=== PATIENT | male | born 1935 | race Caucasian/White ===

== ENCOUNTER 2016-12-17 10:17 | Day surgery (SDC) | payer MEDICARE ==
[2016-12-17] VITALS (7 sets, daily range): BP systolic 125–154; BP diastolic 65–93; PULSE 60–70; RESP 14–18; O2SAT 93–97
[~2016-12-17] VITALS: Ht 180.3 cm; Wt 106.7 kg
[~2016-12-17 10:17] MED LIST: ACYC400T2 PO; COUMADIN PO; DIPH1TAB PO; LACT1CAP65 PO; LISI-571 PO; LOPE2CAP PO; LORA0.5T PO; METO-272 PO
[2016-12-17] MEDS ORDERED: Propofol 10,000 mCg/mL 20 mL Inj ONE (10:18)
[2016-12-17] MEDS ORDERED: fentaNYL-PF 50 mCg/mL 2 mL Inj ONE (10:18)
[2016-12-17] MEDS: Lactated Ringer's 1,000 ML IV SCH ×2 (10:30→11:26)
[2016-12-17 11:18] LABS: INR 1.05 ratio
[2016-12-17] MEDS: Levofloxacin 500 mg/100 mL D5W IV ONE (11:35)
[2016-12-17] MEDS ORDERED: Lactated Ringer's 500 ML IV PRN (11:57)
[2016-12-17] MEDS ORDERED: Lactated Ringer's 1,000 ML IV SCH (11:57)
--- NOTE | 2016-12-17 11:57 | PCM.HPANE ---
Patient Data Date of Service: Dec 17, 2016 Surgeon Admitting Provider: Attending Provider:Josefa Morgan MD Primary Care Physician:Luis Angel Clark MD Other Provider:Adriana King Anesthesia Reason for Visit Bladder Stone, Urinary Retention Ht/WT & BMI Height (Feet): 5 Height (Inches): 11.00 Weight (Kilograms): 106.680 Body Mass Index 32.00 Allergies Coded Allergies: Penicillins (Verified Allergy, Severe, HAS DEVELOPED HIVES IN THE PAST, 11/12/16) acetaminophen (Verified Allergy, Severe, HIVES, RASH, ITCHING, 11/12/16) hydrocodone (Verified Allergy, Severe, HIVES, RASH, ITCHING, 11/12/16) oxycodone (Verified Allergy, Severe, HIVE, RASH, ITCHING, 11/12/16) alendronate sodium (Verified Adverse Reaction, Severe, DIARRHEA, 11/12/16) aspirin (Verified Adverse Reaction, Severe, epistaxis, 11/12/16) Uncoded Allergies: FISH (Allergy, Severe, ANAPHYLAXIS, 11/12/16) Past Anesthesia History Anesthesia History: Denies:: Anesthesia Reactions, Fam Anesthesia Reaction, Malignant Hyperthermia Diabetes History Hx Diabetes?: No MRSA MRSA: No Medications Blood Thinner: Coumadin Hypertension Medication: Yes Home Meds Incl Beta Jovanni: Yes (Metoprolol 50mg) Date Beta Jovanni Taken: Dec 17, 2016 Time Beta Jovanni Taken: 0900 Reported Medications [Coumadin] No Conflict Check1.5 Tab PO DAILY PT UNSURE OF DOSAGE 11/13/16 Acyclovir 400 Mg [id number] Mg PO BID Ref 0 PLEASE VERIFY DOSAGE & FREQUENCY 11/13/16 Lactobacillus Acidophilus (Probiotic)1 Each Capsule1 Each PO DAILY 11/13/16 Metoprolol Succinate ER 50 Mg Tab.er.24h50 Mg PO DAILY Ref 0 11/12/16 Lorazepam 0.5 Mg Tablet0.5 Mg PO HS PRN For Insomnia Ref 0 11/12/16 Loperamide 2 Mg Capsule2-4 Mg PO Q6H PRN PRN 11/12/16 Diphenoxylate/Atropine 2.5-0.025 mg (Lomotil 2.5-0.025 mg)1 Each Tablet1 Tablet PO PRN 11/12/16 Lisinopril 5 Mg Tablet5 Mg PO DAILY #30 TABLET Ref 0 11/12/16 History History of ENT Problems?: Yes HEENT History: Positive for:: Cataracts (bilateral surgery) Hearing Problem Denture Type: Full- Upper Partial- Lower Teeth Condition: Within Normal Limits Missing Teeth Other HEENT Pertinent History: hx of corneal transplant Hx of Heart Problems?: Yes Cardiovascular History: Positive for:: Atrial Fibrillation Cardiac Surgery (angioplasty stent 2014) Hypertension Irregular Heartbeat Denies:: Heart Murmur Valvular Heart Disease Other Cardiac History: 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 Hx of Respiratory Problem?: Yes Respiratory History: Positive for:: Chest Surgery (S/P LUNG BX/RESECTION FOR CA (METS)) Use of C-PAP Machine Other Resp Pertinent History: pt has hx of lobectomy from metastatic colon ca Hx Neurologic Problems?: No Neurological History: Denies:: CVA Multiple Sclerosis Parkinson's Disease Seizures Hx of GI Problems?: No Other GI Pertinent History: hx of colon cancer with colectomy Hx of Problems?: Yes Genitourinary History: Positive for:: Kidney Stones (bladder stone current admission problem) Urinary Tract Infection (HX CYSTITIS) Other Pertinent History: urinary retention current admission problem Male Hx: Denies:: Prostate Problems Scrotal Mass Testicular Surgery (HX HYPOGONADISM) Skin History: Denies:: History Skin Disorders? Pressure Ulcers Hx Musculoskeletal Problems?: No Hx of Psycho/Social Problems?: No Hx Surgeries?: Yes (colectomy, lobectomy, hepatectomy, breanna, marlon cat, corneal transplant) Hx Any Other Health Problems?: Yes Other History: Positive for:: Cancer (metastatic colon) Hospitalization Denies:: Endocrine Disease Thyroid Disease Hx Diabetes: No Hx Alcohol Use: NoHx Substance Use: NoHave You Smoked inLast 12 mo: NoApprox How Many Cigarettes/day: CHEWED TOBACCO & SMOKED 1/2 PPD Stop/Bang Treated for Sleep Apnea?: Yes Do You Have a CPAP Machine?: Yes S-Snoring: Do You Snore Loudly: Yes T-Tired: feel tired, fatigued: No O-Obsered: Observed not breath: No P-Blood Pressure: treated: Yes B- Body Mass Index > 35 kg/m2: No A- Age over 50: Yes N- Neck Large Circumference: No G- Gender Male: Yes JULIA Total Score: 5 JULIA Risk Assessment: High Risk, =/>3 Yes Risk Assessment Category Category 1A: Patient has history of documented sleep apnea, and HAS NOT received any narcotic, sedative or anesthesia administration during this stay. Category 1B: Patient has history of documented sleep apnea, and HAS received any narcotic , sedative or anesthesia administration during this stay Category 2: Patient has SUSPECTED Obstructive Sleep Apnea, and HAS received any narcotic , sedative or anesthesia administration during this stay. Category 3: Patient has SUSPECTED Obstructive Sleep Apnea and HAS NOT received narcotic, sedative or anesthesia administration during this stay. Category 4: Outpatient in Procedural Areas with known sleep apnea or who screen positive for High Risk via the STOP/BANG questionnaire. Exam Exam Vital Signs Vital Signs Date Time Temp Pulse Resp B/P Pulse Ox O2 Delivery O2 Flow Rate FiO2 12/17/16 10:56 CPAP/BIPAP 12/17/16 10:54 36.6 61 18 139/75 97 Room Air General Appearance: Alert HEENT/AIRWAY: MP 1 Lungs: Clear to Auscultation, Normal Air Movement Heart: Exam Unremarkable, Regular Rate/Rhythm, No Murmurs/Rubs/Gallops Meds/Labs/Diagnostics Admission Meds Current Medications Lactated Ringer's (Lr) 1,000 ml @ 120 mls/hr Q8H20M IV Last administered on t 10:30; Start 12/17/16 at 05:00; Stop 12/17/16 at 13:19 Labs Test 12/17/16 10:50 Prothrombin Time 11.3sec (8.1-12.5) Prothromb Time International Ratio 1.05ratio Plan Impression Patient chart reviewed, patient interviewed and anesthestic plan with risks, benefits, and alternatives discussed, and informed consent obtained. NPO per Anesth. Guidelines: Yes ASA Physical Status: ASA2 Mod Systemic Disease Anesthetic Plan: GA Bene/Risks/Altern/Consents: Yes HP Complete Prior to Induction: Yes Arnoldo Alonzo MD Dec 17, 2016 11:57
[2016-12-17] MEDS ORDERED: EPHEDrine Sulfate 50 mg/mL Inj IVPUSH PRN (12:00)
[2016-12-17] MEDS ORDERED: MetoCLOpramide 5 mg/mL 2 mL Inj IVPUSH PRN (12:00)
[2016-12-17] MEDS ORDERED: Phenylephrine 10,000 mCg/mL Inj IVPUSH PRN (12:00)
[2016-12-17] MEDS ORDERED: Dexamethasone 4 mg/mL Inj IVPUSH PRN (12:00)
[2016-12-17] MEDS ORDERED: HYDROmorphone 1 mg/mL Inj IVPUSH PRN (12:00)
[2016-12-17] MEDS ORDERED: Ondansetron 2 mg/mL 2 mL Inj IVPUSH PRN (12:00)
--- NOTE | 2016-12-17 12:47 | PCM.ANEP1 ---
Post Anesthesia PACU Phase 1 Assessment Vital Signs Vital Signs Date Time Temp Pulse Resp B/P Pulse Ox O2 Delivery O2 Flow Rate FiO2 12/17/16 10:56 CPAP/BIPAP 12/17/16 10:54 36.6 61 18 139/75 97 Room Air Anesthetic Administered: GA Level of Alertness: Awake, talking MCRAE's with Equal Strength: Yes Pain: No Nausea or Vomiting: No CV Function & Hydration Stable: Yes Airway Device: Oxygen Delivery: Room Air Lungs: Clear to Auscultation, Normal Air Movement Dermatome Level: Full Sensation PACU Phase 2 Assessment Complications: No Follow up Care: No Patient Instructions Provided: N/A Arnoldo Alonzo MD Dec 17, 2016 12:47
[2016-12-17] MEDS: fentaNYL-PF 50 mCg/mL 2 mL Inj IVPUSH PRN ×2 (13:00→13:06)
--- NOTE | 2016-12-17 13:39 | OP ---
[address] [address] OPERATIVE REPORT PATIENT: ROBINSON CORMIER : 1935 MR#: [id number] ADMIT: 12/17/2016 JOB ID: [id number] DATE OF SURGERY: 12/17/2016 PREOPERATIVE DIAGNOSIS(ES): 1. Bladder stones. 2. Urinary retention. POSTOPERATIVE DIAGNOSIS(ES): 1. Bladder stones. 2. Urinary retention. PROCEDURE PERFORMED: 1. Cystoscopy. 2. Cystolitholapaxy. 3. Transurethral resection of prostate. SURGEON: Josefa Morgan M.D. NEWSP[employer] SUPERVISOR: None. FINDINGS: 1. Multiple bladder stones. 2. Innumerable prostate stones. 3. Coapted lobes of prostate. ANESTHESIA: General. ESTIMATED BLOOD LOSS: Less than 10 mL. DRAINS: An 18-Venezuelan coude catheter to the bladder. SPECIMENS: Prostate chips and stones. COMPLICATIONS: None. CONDITION: Stable. INDICATIONS FOR PROCEDURE: The patient is a 81-year-old man with high postvoid residuals as well as bladder stones. He now presents for transurethral resection of prostate and cystolitholapaxy. DESCRIPTION OF PROCEDURE: After informed consent was obtained, the patient was taken to the operating room. A time-out was performed identifying correct patient, surgical site and procedure. General anesthesia was induced. He was given intravenous antibiotics just prior to the start of the procedure. He was placed in the lithotomy position and all pressure points were identified and appropriately padded. His genitals were then prepped and draped in the usual sterile fashion. A 26-Venezuelan resectoscope was applied to the patient's urethra and advanced into the bladder. The bladder was quite trabeculated. Both ureteral orifices were seen in orthotopic position. There were multiple small bladder stones there. The loop was used to facilitate fragmentation and removal of these stones. The attention was then turned to the transurethral resection of prostate. This proceeded smoothly from the bladder neck to the verumontanum. Adjacent to the verumontanum were small pockets that contained innumerable prostatic stones. These were unroofed successfully bilaterally from the verumontanum and removed with the loop as well. The resection of prostate commenced in a piecemeal fashion working from the right lobe to the left lobe. There was excellent hemostasis at the end of the procedure. The bladder was reinspected and the ureteral orifices were seen as undisturbed. The instruments were removed from the patient's body. An 18-Venezuelan coude catheter was placed and the patient's bladder insufflated with 10 cc of sterile water. It was set to dependent drainage. The patient appeared to tolerate the procedure without any apparent complications. He was reversed from general anesthesia and taken to the PACU in good and stable condition. CHINEDU
--- NOTE | 2016-12-19 12:12 | PATH ---
SURGICAL PATHOLOGY Attending Physician:Josefa Morgan, CASE STATUS: Signed Out PATIENT NAME: ROBINSON CORMIER PID: [id number] : 1935 DATE COLLECTED:12/17/2016 20:49 SPECIMEN: Prostate, Chips CLINICAL HISTORY: BLADDER STONE, URINARY RETENTION 1). 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 CALCULI. NEGATIVE FOR HIGH-GRADE PIN AND ADENOCARCINOMA. ICD10 N40.1 GROSS DESCRIPTION: The specimen is received in one formalin filled container labeled with the patient's name, sublabeled "prostate chips and stones" and consists of multiple portions of pink-hernandez tissue which aggregate to 5.0 x 3.5 x 1.0 CM. Specimen weighs 6 g in total. Also received are 3 pink morrison to dark morrison-hernandez portions of calculi which range in size from 0.2-0.4 CM. All tissue fragments are entirely submitted in 7 cassettes. Calculi is not submitted. 12/18/2016DC MICRO DESCRIPTION: See diagnosis. ICD-9 CODES: CPT CODES: 1: 92642 Electronically Signed Out Kenan Daniel MD, PhD [facility] [address] [place] [address], [place] [address] Technical component performed at [facility], [facility] [address], [place], [address]
== END 2016-12-17 23:59 | disposition home or self-care (01) ==
LOC: SAS 10:17
PROVIDERS: ATTEND Urology
DX: N21.0 Calculus in bladder (principal); N42.0 Calculus of prostate; N40.1 Benign prostatic hyperplasia with lower urinary tract symptoms; R33.8 Other retention of urine; I10 Essential (primary) hypertension; I25.10 Atherosclerotic heart disease of native coronary artery without angina pectoris; Z95.5 Presence of coronary angioplasty implant and graft; Z87.891 Personal history of nicotine dependence; Z79.01 Long term (current) use of anticoagulants; Z90.49 Acquired absence of other specified parts of digestive tract; Z87.440 Personal history of urinary (tract) infections; Z85.038 Personal history of other malignant neoplasm of large intestine
CPT/HCPCS: 36415; 52317; 52601; 85610; J2704; J3010; J7120